=== PATIENT | male | born 1955 | race American Indian/Alaskan Native ===

== ENCOUNTER 2020-10-01 01:49 | Emergency (ER) | payer MEDICARE ==
--- NOTE | 2020-10-01 02:30 | Emergency Department Report ---
ED General Adult HPI - General Stated complaint: HYPOGLYCEMIA Time Seen by Provider: 10/01/20 02:11 - History of Present Illness Initial comments: 65-year-old male, history of diabetes, presents to ED with hypoglycemia. EMS was called to the [facility] where patient was located for altered mental status. Patient was found to have a glucose of 35. Patient was given glucagon x1 and oral glucose x2 by EMS. He is currently awake and oriented x3. Patient reports he takes insulin. He denies any other complaints. Patient reports last meal was at 7 PM last night. -: This morning Consistency: now resolved Improves with: other (Glucose) Worsens with: none Associated Symptoms: confusion. denies: chest pain, fever/chills, naus ea/vomiting, shortness of breath Treatments Prior to Arrival: other (Glucose) - Related Data Allergies Allergy/AdvReac Type Severity Reaction Status Date / Time morphine Allergy Intermediate Unknown Verified 10/01/20 02:37 ED Review of Systems ROS: Stated complaint: HYPOGLYCEMIA Other details as noted in HPI Comment: All other systems reviewed and negative Constitutional: denies: fever Respiratory: denies: cough, shortness of breath Cardiovascular: denies: chest pain Gastrointestinal: denies: abdominal pain, nausea, vomiting, diarrhea ED Physical Exam - General General appearance: alert, in no apparent distress - Head Head exam: Present: atraumatic, normocephalic - Eye Eye exam: Present: normal appearance, EOMI - ENT ENT exam: Present: mucous membranes moist - Neck Neck exam: Present: normal inspection - Respiratory Respiratory exam: Present: normal lung sounds bilaterally. Absent: respiratory distress - Cardiovascular Cardiovascular Exam: Present: regular rate, normal rhythm - GI/Abdominal GI/Abdominal exam: Present: soft. Absent: distended, tenderness - Extremities Exam Extremities exam: Present: normal inspection - Neurological Exam Neurological exam: Present: alert, oriented X3, CN II-XII intact. Absent: motor sensory deficit - Psychiatric Psychiatric exam: Present: normal affect, normal mood - Skin Skin exam: Present: warm, dry, intact, normal color ED Course Vital Signs 10/01/20 10/01/20 10/01/20 02:13 02:24 02:30 Temperature 96.9 F L Pulse Rate 71 72 Respiratory 22 13 Rate Blood Pressure 150/83 O2 Sat by Pulse 96 95 Oximetry 10/01/20 10/01/20 10/01/20 03:00 03:30 04:00 Temperature Pulse Rate 77 74 78 Respiratory 19 15 17 Rate Blood Pressure 150/83 150/83 O2 Sat by Pulse 88 89 94 Oximetry - Reevaluation(s) Reevaluation #1: 10/01/20 04:28 Patient reports history of chronic kidney disease. States he sees a visual merchandising specialist currently, Dr. Lanier. Patient states he is not on dialysis at this time. ED Medical Decision Making - Lab Data Result diagrams: 10/01/20 02:26 10/01/20 02:26 - Medical Decision Making 65-year-old male presents to ED following hypoglycemic episode. Patient given glucagon and glucose by EMS. Patient is currently ANO x3, no neuro deficits present. Patient reports he last ate at 7 PM. Labs are unremarkable except for elevated BUN and creatinine. Patient states he has a history of chronic kidney disease. States he is not yet on dialysis, but does see a visual merchandising specialist regularly. No previous visits, so no baseline for comparison. Patient advised to follow-up with his visual merchandising specialist. Meal was given while patient here in the ED. Repeat Accu-Chek is normal. Will discharge at this time. Outpatient follow-up advised, return precautions given. Critical care attestation.: If time is entered above; I have spent that time in minutes in the direct care of this critically ill patient, excluding procedure time. ED Disposition Clinical Impression: Hypoglycemia Disposition: DC-01 TO HOME OR SELFCARE Is pt being admited?: No Condition: Stable Instructions: Preventing Hypoglycemia, Hypoglycemia, [id number] Referrals: MARY BURT MD [Primary Care Provider] - 3-5 Days PRIMARY CAREMD [Referring] - 3-5 Days Time of Disposition: 04:29
[2020-10-01 03:20] LABS: Hematocrit 26.9 % (35.5-45.6); Hemoglobin 8.6 gm/dl (11.8-15.2); Mean Corpuscular HGB Conc 32 % (32-34); Mean Corpuscular Volume 78 fl (84-94); Platelet Count 317 K/mm3 (140-440); Red Blood Count 3.47 M/mm3 (3.65-5.03); Red Cell Distribution Width 19.5 % (13.2-15.2)
[2020-10-01 03:37] LABS: Calcium 8.4 mg/dL (8.4-10.2)
[2020-10-01 05:39] VITALS: BP 140/79
[2020-10-01 06:45] LABS: Total Cells Counted 100
[2020-10-01 06:46] LABS: Anisocytosis 1+; Platelet Estimate Consistent w Auto
== END 2020-10-01 05:10 | disposition home or self-care (01) ==
LOC: ED 01:49
DX: E16.2 Hypoglycemia, unspecified (principal); R41.82 Altered mental status, unspecified
CPT/HCPCS: 36415; 80048; 82962; 85007; 85025; 99283